=== PATIENT | female | born 1980 | race Caucasian/White ===

== ENCOUNTER → 2023-11-19 08:02 | Outpatient (REF) | payer BC, SELFPAY | LOC: WDC 08:02 | PROVIDERS: ATTENDING PHYSICIAN Physician Assistant | DX: Z12.31 Encounter for screening mammogram for malignant neoplasm of breast (principal) | CPT/HCPCS: 77063; 77067 ==

== ENCOUNTER → 2024-11-23 13:52 | Outpatient (REF) | payer BC, SELFPAY | LOC: WDC 13:52 | PROVIDERS: ATTENDING PHYSICIAN Physician Assistant | DX: Z12.31 Encounter for screening mammogram for malignant neoplasm of breast (principal) | CPT/HCPCS: 77063; 77067 ==